=== PATIENT | male | born 1930 | race Caucasian/White ===

== ENCOUNTER 2017-08-31 13:46 | Outpatient (CLI) | payer MEDICARE, BC ==
--- NOTE | 2017-09-01 04:03 | HP ---
DATE OF SERVICE: 08/31/2017 HISTORY OF PRESENT ILLNESS: Mr. Yung Verma is a very pleasant 86-year-old gentleman accompanie d by his daughter who [facility] evaluation of a pressure ulceration of the rig ht buttock. The patient's daughter states that the pressure ulceration of the right buttock develope d while the patient was at [facility] in [place] after admission to the ICU for influenza. The patient's daughter states that Mr. Verma was discharged from [facility] in [place] at the end o april of this year. She states that he was then transferred to [facility] and was discharged fr [facility] in May. From [facility], the patient was discharged to home where he has been r eceiving dressing changes with the assistance of Home Health. The patient's daughter states that he has received numerous dressings for the pressure ulceration of the right buttock. She states that pr esently he is receiving dressing changes of Calazime applied over SilvaSorb gel. The patient's daugh ter states that a pressure ulceration of the left buttock has healed completely while the pressure ul ceration of the right buttock while improved is still present. PAST MEDICAL HISTORY: 1. Hypertension. 2. Prostate carcinoma. 3. Colon carcinoma. PAST SURGICAL HISTORY: 1. Appendectomy. 2. Hernia repair. 3. Colon resection. MEDICATIONS: 1. Aspirin 81 mg. 2. Metoprolol. 3. Valsartan/HCTZ. 4. Fish oil. 5. Centrum Silver. 6. Citracal. 7. Simvastatin. ALLERGIES: No known diagnosed allergies. SOCIAL HISTORY: Significant for tobacco use intermittently since age 15. The patient states that he stopped smoking; however, in 1950. Over this period of time, the patient states 1 pack of cigarette s would last 2-3 weeks. The patient admits to the moderate consumption of alcohol in the past. FAMILY HISTORY: Significant for coronary artery disease. The patient's father was diagnosed with co ronary artery disease. PHYSICAL EXAMINATION: VITAL SIGNS: Temperature 98.0, pulse 83, respirations 20, blood pressure 154/77. GENERAL: An 86-year-old gentleman, sitting on chair in examination room, in no acute distress. HEENT: Normocephalic, atraumatic. NECK: No nuchal rigidity. CHEST: Clear to auscultation. CARDIAC: Regular rate and rhythm. ABDOMEN: Soft. BACK: A wound of the right buttock is present, which measures approximately 1.5 x 0.7 cm. Granulati on tissue is present within the wound margins. Nonviable tissue present within the wound margins was debrided with an excisional full-thickness debridement. No purulent drainage is associated with the wound. No erythema of the skin surrounding the wound is present. No maceration of the skin of the periwound is noted. EXTREMITIES: No clubbing or cyanosis. NEUROLOGIC: Grossly nonfocal. ASSESSMENT AND PLAN: 1. Pressure ulceration of right buttock as described above. Dressing changes of Calazime ointment w ill be continued; however, the application of SilvaSorb gel to the right buttock pressure ulceration will be discontinued. No antibiotics will be prescribed today based upon the appearance of the wound . I will see Mr. Verma again in two weeks. The patient and his daughter understand and are in agre ement with the preceding treatment plan. 2. Hypertension. 3. Prostate carcinoma. 4. Colon carcinoma.
== END 2017-08-31 13:47 | disposition home or self-care (01) ==
LOC: WCC 13:46
PROVIDERS: ATTEND Family Medicine
DX: L89.319 Pressure ulcer of right buttock, unspecified stage (principal); I10 Essential (primary) hypertension; C61 Malignant neoplasm of prostate; C18.9 Malignant neoplasm of colon, unspecified
CPT/HCPCS: 11042; 99203; G0463